=== PATIENT | male | born 1940 | race Caucasian/White ===

== ENCOUNTER → 2016-11-05 | Outpatient (CLI) | payer BC | END | disposition home or self-care (01) | LOC: PCVCCLINIC 14:14 | PROVIDERS: ATTEND Internal Medicine Cardiovascular Disease | DX: I25.10 Atherosclerotic heart disease of native coronary artery without angina pectoris (principal); I10 Essential (primary) hypertension; E78.00 Pure hypercholesterolemia, unspecified; K21.9 Gastro-esophageal reflux disease without esophagitis; Z79.82 Long term (current) use of aspirin; Z79.899 Other long term (current) drug therapy | CPT/HCPCS: 36415; 93005; G0463 ==

== ENCOUNTER → 2017-11-06 | Outpatient (CLI) | payer BC ==
--- NOTE | 2017-11-06 14:43 | PCVCIMAG ---
APPROVED REPORT Study performed: 11/06/2017 12:55:39 Exam: Stress Echocardiogram Indication: Hyperlipidemia, Hypertension, Stress Nurse: Dunia Lim RN Status: routine Ht: 5 ft 7 in HR: 80 bpm BP: 130/80 mmHg Rhythm: NSR Medical History Medical History: Hyperlipidemia, HTN, Abnormal calcium score Procedure The patient underwent an Exercise Stress Test using the Cedric Protocol. Blood pressure, heart rate, and EKG were monitored. An Echocardiogram was performed by electronic warfare technician in four stages in quad fashion. At peak stress, four selected images were obtained and placed side by side with resting images for comparison. Stress Test Details Stress Test: Exercise stress testing was performed using a Cedric protocol. HR Resting HR: 80 bpmMax Heart Rate (APMHR): 141 bpm Max HR Achieved: 144 bpmTarget HR (85% APMHR): 119 bpm % of APMHR: 102 HR response to stress: Normal HR response to stress BP Resting BP: 130/80 mmHg Max BP: 150/80 mmHg ECG Resting ECG: Sinus Rhythm Stress ECG: Sinus Rhythm ST Change: Mildly positive Maximum ST Deviation: 1.5 mm Recovery ECG: Sinus Bradycardia Clinical Reason for Termination: Maximal effort Exercise duration: 9 min 31 sec Highest Stage Achieved: Stage 3: 3.4 mph at 14% grade. Exercise capacity: 11.70 METs Overall Exercise Capacity for Age: Good Pre-Stress Echo The resting Echocardiogram showed normal left ventricular contractility with an estimated Ejection Fraction of about >55%. Normal wall motion in all segments on baseline images. Post-Stress Echo The stress Echocardiogram showed normal left ventricular contractility with an estimated Ejection Fraction of about 60-65%. Possible mild hypokinesis of the lateral wall. Clinical No clinical symptoms of syncope 15 today evidence for ischemia. Conclusion Clinical Response: Non-ischemic Exercise Capacity: Superior Stress ECG Response: Ischemic Stress Echo Images: Equivocal lateral ischemia Other Information Study Quality: Adequate
== END | disposition home or self-care (01) ==
LOC: PCVCIMAG 13:08
PROVIDERS: ATTEND Internal Medicine Cardiovascular Disease
DX: I25.10 Atherosclerotic heart disease of native coronary artery without angina pectoris (principal); I10 Essential (primary) hypertension; R78.5 Finding of other psychotropic drug in blood
CPT/HCPCS: 93325; 93351

== ENCOUNTER → 2018-11-05 | Outpatient (CLI) | payer BC ==
--- NOTE | 2018-11-05 11:29 | PCVCIMAG ---
APPROVED REPORT Study performed: 11/05/2018 10:34:26 EXAM: Comprehensive 2D, Doppler, and color-flow Echocardiogram Patient Location: Echo lab Room #: 2Status: routine BSA: 1.91 HR: 60 bpmBP: 138/64 mmHg Rhythm: NSR Other Information Study Quality: Good Risk Factors: Cardiac Risk Factors: HTN, Hyperlipidemia Indications CAD Hypertension/HDD 2D Dimensions IVSd: 8.32 (7-11mm)LVOT Diam: 18.36 (18-24mm) LVDd: 39.84 mm PWd: 8.21 (7-11mm)Ascending Ao: 36.22 (22-36mm) LVDs: 23.91 (25-40mm) Left Atrium: 30.53 (27-40mm) Aortic Root: 30.29 mm LV Single Plane 4CH: 57.28 % LV Single Plane 2CH: 58.04 % Biplane EF: 57.9 % Volumes Left Atrial Volume (Systole) Single Plane 4CH: 63.59 mLSingle Plane 2CH: 60.01 mL Biplane LA Volume: 64.00 mLLA ESV Index: 33.00 mL/m2 Aortic Valve AoV Peak Nii.: 1.20 m/s AO Peak Gr.: 5.75 mmHgLVOT Max P.50 mmHg LVOT Max V: 0.93 m/s KEESHA Vmax: 2.06 cm2 Mitral Valve E/A Ratio: 0.9 MV Decel. Time: 255.62 ms MV E Max Nii.: 1.02 m/s MV A Nii.: 1.17 m/s IVRT: 103.81 ms TDI E/Lateral E': 14.57E/Medial E': 17.00 Medial E' Nii.: 0.06 m/s Lateral E' Nii.: 0.07 m/s Pulmonary Valve PV Peak Nii.: 1.04 m/sPV Peak Gr.: 4.29 mmHg Pulmonary Vein P Vein S: 0.57 m/sP Vein A: 0.36 m/s P Vein D: 0.56 m/sP Vein A Dur.: 131.5 msec P Vein S/D Ratio: 1.02 Tricuspid Valve TV Vmax: 0.56 m/s Left Ventricle The left ventricle is normal size. There is normal LV segmental wall motion. There is normal left ventricular wall thickness. Left ventricular systolic function is normal. The left ventricular ejection fraction is within the normal range. LVEF is 55-60%. Mild diastolic dysfunction is present (impaired relaxation pattern). Right Ventricle The right ventricle is normal size. The right ventricular systolic function is normal. Atria Left atrium is at the upper limits of normal. The right atrium size is normal. Aortic Valve Aortic valve is trileaflet. Aortic valve leaflets are sclerotic but open well. Trace aortic regurgitation. There is no aortic valvular stenosis. Mitral Valve Moderate mitral annular calcification. There is no mitral valve regurgitation noted. No evidence of mitral valve stenosis. Tricuspid Valve The tricuspid valve is normal in structure. There is no tricuspid valve regurgitation noted. Pulmonic Valve The pulmonary valve is normal in structure. There is no pulmonic valvular regurgitation. Great Vessels The aortic root is normal in size. Ascending aorta is at the upper limits of normal at 3.6 cm. The aortic arch is 2.8 cm IVC is normal in size and collapses >50% with inspiration. Pericardium There is no pericardial effusion. There is no pleural effusion. <Conclusion> The left ventricle is normal size. There is normal left ventricular wall thickness. Left ventricular systolic function is normal. Mild diastolic dysfunction is present (impaired relaxation pattern). The right ventricle is normal size. Left atrium is at the upper limits of normal. Aortic valve leaflets are sclerotic but open well. Trace aortic regurgitation. Moderate mitral annular calcification. There is no tricuspid valve regurgitation noted. Ascending aorta is at the upper limits of normal at 3.6 cm. The aortic arch is 2.8 cm
== END | disposition home or self-care (01) ==
LOC: PCVCIMAG 10:25
PROVIDERS: ATTEND Internal Medicine Cardiovascular Disease
DX: I05.9 Rheumatic mitral valve disease, unspecified (principal); I10 Essential (primary) hypertension
CPT/HCPCS: 93306